=== PATIENT | male | born 1980 ===

== ENCOUNTER 2020-06-18 13:20 | Emergency (ER) | payer SELFPAY ==
[2020-06-18] MEDS ORDERED: Lactated Ringers 1,000 ML IV ONE (13:29)
[2020-06-18] MEDS ORDERED: Sodium Chloride 0.9% 10 ML Syringe FLUSH PRN (13:29)
[2020-06-18] MEDS ORDERED: Sodium Chloride 0.9% 2.5 ML Syringe FLUSH PRN (13:29)
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
[2020-06-18 13:56] LABS: BLOOD UREA NITROGEN,BUN 6 mg/dL (7.0-18.0); CARBON DIOXIDE,CO2 26.6 mmol/L (21.0-32.0); CHLORIDE,CL 107 mmol/L (98-107); GLUCOSE RANDOM 124 mg/dL (74-106); POTASSIUM,K 3.4 mmol/L (3.5-5.1); SODIUM,NA 144 mmol/L (136-148)
[2020-06-18] MEDS ORDERED: Iopamidol 755 MG/ML 500 ML Multipack Bottle IVPUSH ONE (14:34)
[2020-06-18] MEDS ORDERED: propofoL 100 ML ONE (14:35)
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
[2020-06-18] MEDS ORDERED: Propofol 200 MG/20 ML SDV IVPUSH ONE (14:40)
[2020-06-18] MEDS ORDERED: Etomidate 2 MG/ML 20 ML SDV IVPUSH ONE (14:44)
[2020-06-18] MEDS ORDERED: Rocuronium 50 MG/5 ML Vial IVPUSH ONE (14:50)
[2020-06-18] MEDS ORDERED: propofoL 100 ML IV SCH (14:50)
[2020-06-18] MEDS ORDERED: Morphine 4 MG/ML Syringe IVPUSH ONE (14:50)
[2020-06-18] MEDS ORDERED: Midazolam 1 MG/ML 2 ML SDV IVPUSH ONE (14:50)
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
[2020-06-18] MEDS ORDERED: Midazolam 1 MG/ML 2 ML SDV ONE (14:53)
[2020-06-18] MEDS ORDERED: Morphine 4 MG/ML Syringe ONE ×2 (14:53→14:56)
--- NOTE | 2020-06-18 15:17 | CT ---
INDICATION: Trauma. TECHNIQUE: CT angiogram of the chest, abdomen and pelvis utilizing 100 mL of Isovue-370 contrast intravenous. Coronal and sagittal reformats. COMPARISON: None available. FINDINGS: Chest: Central airways patent. Mild hazy ground-glass opacification throughout the lungs bilaterally as well as mild bandlike opacities in the dependent lower lungs, favor subsegmental atelectasis in the setting of hypoventilatory technique. No pneumothorax or pleural effusion. - Normal cardiac size. No pericardial effusion, mediastinal hematoma, or thoracic lymphadenopathy. Thoracic aorta and imaged branch vessels are patent without evidence of traumatic injury. - Abdomen and pelvis: Normal liver contour. Diffuse hepatic steatosis. No focal pelvic lesion. Portal vein is patent. No biliary dilatation. The gallbladder neck contains a nearly 2 cm gallstone. No gallbladder distention or inflammatory changes. The pancreas, spleen, and adrenals appear normal. - Symmetric renal enhancement. No hydronephrosis bilaterally. Unremarkable bladder and prostate. - The bowel appears normal in caliber and enhancement diffusely. Normal appendix. No free air, free fluid, or lymphadenopathy. - Normal caliber abdominal aorta. The major branch vessels appear patent. Mild superior endplate deformities of the T3 and T4 vertebral bodies with associated minimal anterior height loss. IMPRESSION: 1. Mild T3 and T4 vertebral deformities are age-indeterminate. Correlate for point tenderness. MRI may be considered if clinical concern for acute compression fractures. 2. No evidence of acute visceral injury involving the chest, abdomen, or pelvis. 2. Diffuse hepatic steatosis. 3. Cholelithiasis. Dictated by Juan Suggs MD @ 06/18/2020 3:08:14 PM Please note that all CT scans at this facility use dose modulation, iterative reconstruction, and/or weight-based dosing when appropriate to reduce radiation dose to as low as reasonably achievable. Dictated by: Juan Suggs MD @ 06/18/2020 15:15:35 (Electronically Signed)
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
--- NOTE | 2020-06-18 15:28 | CR ---
Indication: Trauma. Technique: AP portable view of the chest. Comparison: None Findings: ET tube is 5.9 centimeters severe to level of [place]. NG tube courses below the left hemidiaphragm. The heart is enlarged. Patchy bilateral opacities are identified bilaterally. No pneumothorax is seen. Impression: Intubation Dictated by Eliana He MD @ Jun 18 2020 3:25PM Signed by Dr. Eliana He @ Jun 18 2020 3:26PM
--- NOTE | 2020-06-19 10:32 | CT ---
EXAM DATE: 06/18/20 PATIENT'S AGE: 39 Patient: NIYA YEN Facility: [facility] Site . Site : [id number] Study: CT-Chest Angio CAP/TRAUMA-06/18/2020 2:40:18 PM Ordering Physician: Jose Katz Final Report: INDICATION: Trauma. TECHNIQUE: CT angiogram of the chest, abdomen and pelvis utilizing 100 mL of Isovue-370 contrast intravenous. Coronal and sagittal reformats. COMPARISON: None available. FINDINGS: Chest: Central airways patent. Mild hazy ground-glass opacification throughout the lungs bilaterally as well as mild bandlike opacities in the dependent lower lungs, favor subsegmental atelectasis in the setting of hypoventilatory technique. No pneumothorax or pleural effusion. - Normal cardiac size. No pericardial effusion, mediastinal hematoma, or thoracic lymphadenopathy. Thoracic aorta and imaged branch vessels are patent without evidence of traumatic injury. - Abdomen and pelvis: Normal liver contour. Diffuse hepatic steatosis. No focal pelvic lesion. Portal vein is patent. No biliary dilatation. The gallbladder neck contains a nearly 2 cm gallstone. No gallbladder distention or inflammatory changes. The pancreas, spleen, and adrenals appear normal. - Symmetric renal enhancement. No hydronephrosis bilaterally. Unremarkable bladder and prostate. - The bowel appears normal in caliber and enhancement diffusely. Normal appendix. No free air, free fluid, or lymphadenopathy. - Normal caliber abdominal aorta. The major branch vessels appear patent. Mild superior endplate deformities of the T3 and T4 vertebral bodies with associated minimal anterior height loss. IMPRESSION: 1. Mild T3 and T4 vertebral deformities are age-indeterminate. Correlate for point tenderness. MRI may be considered if clinical concern for acute compression fractures. 2. No evidence of acute visceral injury involving the chest, abdomen, or pelvis. 2. Diffuse hepatic steatosis. 3. Cholelithiasis. Dictated by Juan Suggs MD @ 06/18/2020 3:08:14 PM Please note that all CT scans at this facility use dose modulation, iterative reconstruction, and/or weight-based dosing when appropriate to reduce radiation dose to as low as reasonably achievable. Dictated by: Juan Suggs MD @ 06/18/2020 15:15:35 Signed by: Juan Suggs MD @06/18/2020 3:15:35 PM (Electronic Signature) Report Signed by Proxy. ABHILASH
== END 2020-06-18 15:20 ==
LOC: MW.ED 13:20
DX: S06.6X9A Traumatic subarachnoid hemorrhage with loss of consciousness of unspecified duration, initial encounter (principal); S06.5X9A Traumatic subdural hemorrhage with loss of consciousness of unspecified duration, initial encounter; S02.119A Unspecified fracture of occiput, initial encounter for closed fracture; S51.012A Laceration without foreign body of left elbow, initial encounter; F10.129 Alcohol abuse with intoxication, unspecified; V87.8XXA Person injured in other specified noncollision transport accidents involving motor vehicle (traffic), initial encounter
CPT/HCPCS: 31500; 36415; 43752; 51702; 70450; 71045; 71275; 72125; 73070; 74174; 80053; 80305; 80307; 81001; 82550; 83605; 83735; 84100; 84484; 85025; 85610; 85730; 86850; 86900; 86901; 87635; 93005; 96374; 99285; G0390; J0330; J2250; J2270; J2704; J3490; J7120; Q9967; 99291; U0002